=== PATIENT | female | born 1995 | race African-American/Black ===

== ENCOUNTER 2017-05-10 16:18 | Emergency (ER) | payer MEDICAID ==
[~2017-05-10] VITALS: Ht 165.1 cm; Wt 95.3 kg
[~2017-05-10 16:18] MED LIST: AMOXICILLIN500 MG ORAL
[2017-05-10 16:45] VITALS: BP 115/81
[2017-05-10] MEDS ORDERED: IBUPROFEN600 MG ORAL (17:25)
[2017-05-10 17:34] VITALS: BP 115/81
--- NOTE | 2017-05-10 18:15 | Emergency Room Report ---
History of Present Illness General Chief Complaint: Wound Recheck/Suture Removal Source: Patient Present Illness HPI The patient is a 22-year-old male presenting for right toe pain. She states that she kicked a tire approximately one week prior and experienced pain to the big toe. She states that she was initially bleeding and the toenail fell off. Pain has decreased but continued and is a 5/10 dull ache. Worse with touch. She denies any other symptoms including rash, fever, chills, calf pain Allergies: Coded Allergies: No Known Allergies (Unverified , 02/12/15) Patient History Past Medical History: see triage record Pertinent Family History: none Last Menstrual Period: on period Reviewed Nursing Documentation: PMH: Agreed, PSxH: Agreed Nursing Documentation-PMH Past Medical History: No Stated History Review of Systems All Other Systems: negative except mentioned in HPI Physical Exam Vital Signs Date Time Temp Pulse Resp B/P (MAP) Pulse Ox O2 Delivery O2 Flow Rate FiO2 05/10/17 16:37 98.4 88 16 115/81 100 Room Air Sp02 EP Interpretation: reviewed, normal General Appearance: no apparent distress, alert, GCS 15, non-toxic Head: normocephalic, atraumatic Eyes: bilateral eye normal inspection, bilateral eye PERRL Musculoskeletal: back normal, gait/station normal, normal range of motion, other - R 1st toe nail has been removed, tender - R 1st toe distally Neurologic: alert, oriented x3, responsive, motor strength/tone normal, sensory intact, speech normal Psychiatric: judgement/insight normal, memory normal, mood/affect normal, no suicidal/homicidal ideation Skin: normal color, no rash, warm/dry, well hydrated Lymphatic: no adenopathy Medical Decision Making PA Attestation Dr. Johnson is my supervising physician. Patient management was discussed with my supervising physician Diagnostic Impression: Primary Impression: Toenail torn away ER Course The patient is a 22-year-old male presenting for right toe pain Ddx considered include but not limited to sprain/strain, subungual hematoma, fracture, contusion, cellulitis PE: NAD Right foot: First digit has nail removed. No bleeding. No ecchymosis. No edema. Full active range of motion. Sensation is intact. X-ray of the right foot is unremarkable The patient discharged home and told to follow up with her primary doctor. ER precautions are given Other X-Ray Diagnostic Results Other X-Ray Diagnostic Results : X-Ray ordered: R foot # of Views/Limited Vs Complete: 3 View Indication: Pain EP Interpretation: Yes PA Xray: Interpretation reviewed, by supervising MD, and agrees with findings. Interpretation: no dislocation, no soft tissue swelling, no fractures Impression: No acute disease Electronically Signed by: Salazar Cortez PA-C Last Vital Signs Date Time Temp Pulse Resp B/P (MAP) Pulse Ox O2 Delivery O2 Flow Rate FiO2 05/10/17 17:34 98.4 69 16 115/81 100 Room Air Status: improved Disposition: HOME, SELF-CARE Condition: Improved Scripts Ibuprofen* (MOTRIN*) 600 Mg Tablet 600 MG ORAL Q8H Y for For Pain, #30 TAB 0 Refills Prov: SALAZAR CORTEZ 05/10/17 Patient Instructions: Nail Avulsion Additional Instructions: I discussed my findings with the patient. All questions and concerns have been answered. Treatment and medication compliance have been addressed. I advised the patient that they need to follow up with PMD in 3-5 days. Return to ED if symptoms worsen, new symptoms arise, or if needed for any reason. Patient verbalized understanding of discharge instructions. SALAZAR CORTEZ May 10, 2017 18:15
--- NOTE | 2017-05-11 09:55 | Diagnostic Imaging Report ---
Indication: PAIN Technique: 3 views right foot Comparison: none Findings: No acute fractures. No dislocations. 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 Impression: Negative
== END 2017-05-10 17:40 | disposition home or self-care (01) ==
LOC: EMR 17:39
DX: S91.211D Laceration without foreign body of right great toe with damage to nail, subsequent encounter (principal); W22.8XXD Striking against or struck by other objects, subsequent encounter; Q66.22 Congenital metatarsus adductus
CPT/HCPCS: 99283

== ENCOUNTER 2017-08-01 17:40 | Emergency (ER) | payer MEDICAID ==
[~2017-08-01] VITALS: Ht 165.1 cm; Wt 90.7 kg
[~2017-08-01 17:40] MED LIST changes: +IBUPROFEN600 MG ORAL
[2017-08-01] MEDS ORDERED: PENICILLIN V P500 MG PO (18:14)
--- NOTE | 2017-08-01 18:15 | Emergency Room Report ---
History of Present Illness General Chief Complaint: Flu Like Symptoms Source: Patient Present Illness HPI Patient is a 22-year-old female presents today with complaints of sore throat that began 4 days ago. She states the pain is currently for medicine in severity and just wanting medication for the pain. She notes a subjective fever at home, no medication was taken. She denies any cough, runny nose or associated symptoms. She has no significant medical problems and denies tobacco , alcohol or drug use. Allergies: Coded Allergies: No Known Allergies (Unverified , 02/12/15) Patient History Reviewed Nursing Documentation: PMH: Agreed, PSxH: Agreed Review of Systems ENT: Reports: throat pain All Other Systems: negative except mentioned in HPI Physical Exam Vital Signs Date Time Temp Pulse Resp B/P (MAP) Pulse Ox O2 Delivery O2 Flow Rate FiO2 08/01/17 17:47 98.2 88 20 133/79 98 Room Air Sp02 EP Interpretation: reviewed, normal General Appearance: no apparent distress, alert, GCS 15, non-toxic Head: normocephalic, atraumatic Eyes: bilateral eye normal inspection, bilateral eye PERRL ENT: hearing grossly normal, no angioedema, normal voice, uvula midline, tonsillar swelling, tonsillar exudate Neck: full range of motion, supple/symm/no masses Respiratory: chest non-tender, lungs clear, normal breath sounds, speaking full sentences Cardiovascular #1: regular rate, rhythm, no edema Cardiovascular #2: 2+ carotid (R), 2+ carotid (L), 2+ radial (R), 2+ radial (L) , 2+ dorsalis pedis (R), 2+ dorsalis pedis (L) Gastrointestinal: normal bowel sounds, non tender, soft, non-distended, no guarding, no rebound Rectal: deferred Genitourinary: normal inspection, no CVA tenderness Musculoskeletal: back normal, gait/station normal, normal range of motion, non- tender, calf tenderness Neurologic: alert, oriented x3, responsive, motor strength/tone normal, sensory intact, speech normal Psychiatric: judgement/insight normal, memory normal, mood/affect normal, no suicidal/homicidal ideation Reflexes: 3+ bicep (R), 3+ bicep (L), 3+ tricep (R), 3+ tricep (L), 3+ knee (R) , 3+ knee (L) Skin: normal color, no rash, warm/dry, well hydrated Lymphatic: no adenopathy Medical Decision Making PA Attestation supervising physician Dr. Penny Diagnostic Impression: Primary Impression: Acute tonsillitis ER Course Will treat patient empirically with antibiotics based on presentation and history. Findings consistent with acute tonsillitis patient's sisters with penicillin. The instructions are Tylenol and Motrin for fever and pain as needed. Patient understands and agree with plan. Last Vital Signs Date Time Temp Pulse Resp B/P (MAP) Pulse Ox O2 Delivery O2 Flow Rate FiO2 08/01/17 17:47 98.2 88 20 133/79 98 Room Air Status: improved Disposition: HOME, SELF-CARE Condition: Stable Scripts Ibuprofen* (MOTRIN*) 600 Mg Tablet 600 MG ORAL Q6H Y for For Pain, #30 TAB Prov: Patricia Grove P.AAdrienne 08/01/17 Penicillin V Potassium* (PENVK*) 500 Mg Tablet 500 MG PO Q6H for 10 Days, #28 TAB 0 Refills Prov: Patricia Grove.AAdrienne 08/01/17 Patricia Grove.Ross Aug 01, 2017 18:15
[2017-08-01] MEDS ORDERED: IBUPROFEN600 MG ORAL (18:22)
[2017-08-01 18:25] VITALS: BP 133/79
== END 2017-08-01 18:25 | disposition home or self-care (01) ==
LOC: EMR 18:25
DX: J03.90 Acute tonsillitis, unspecified (principal)
CPT/HCPCS: 99283

== ENCOUNTER 2018-01-11 19:00 | Emergency (ER) | payer MEDICAID ==
[~2018-01-11] VITALS: Ht 165.1 cm; Wt 104.3 kg
[~2018-01-11 19:00] MED LIST changes: +PENICILLIN V P500 MG PO
[2018-01-11 20:00] VITALS: BP 113/78
[2018-01-11 21:20] LABS: BASOPHILS % (AUTO) 0.9 % (0.0-2.0); EOSINOPHILS % (AUTO) 1.4 % (0.0-3.0); HEMATOCRIT 32.3 % (37.0-47.0); HEMOGLOBIN 9.8 G/DL (12.0-16.0); LYMPHOCYTES % (AUTO) 29.7 % (20.0-45.0); MEAN CORPUSCULAR VOLUME 74 FL (80-99); MONOCYTES % (AUTO) 5.7 % (1.0-10.0); NEUTROPHILS % (AUTO) 62.3 % (45.0-75.0); PLATELET COUNT 313 K/UL (150-450); RED BLOOD COUNT 4.39 M/UL (4.20-5.40); RED CELL DISTRIBUTION WIDTH 16.2 % (11.6-14.8); WHITE BLOOD COUNT 9.8 K/UL (4.8-10.8)
[2018-01-11 21:40] VITALS: BP 111/80
--- NOTE | 2018-01-11 21:49 | Diagnostic Imaging Report ---
EXAM: US First Trimester, Transabdominal US , Transvaginal CLINICAL HISTORY: PAIN TECHNIQUE: Real-time transabdominal and transvaginal obstetrical ultrasound of the maternal pelvis and a first trimester with image documentation. Transvaginal imaging was used for better evaluation of the fetus and adnexa. COMPARISON: No relevant prior studies available. FINDINGS: Gestation: Single live IUP approximately 7 weeks. heart rate 144 bpm. CRL 9.4 mm. Placenta/amniotic fluid: Cannot be adequately evaluated due to the early gestational age. Uterus/cervix: Uterus 9.2 x 5.5 x 6.3 cm. No myometrial mass. Ovaries: No ovarian torsion. Right ovary 3.6 x 1.7 x 2.6 cm. Left ovary 3.8 x 2 x 3.8 cm. No abnormal adnexal mass. Free fluid: Trace free fluid. IMPRESSION: 1. Single live IUP approximately 7 weeks. 2. No ovarian torsion.
--- NOTE | 2018-01-11 23:42 | Emergency Room Report ---
History of Present Illness General Chief Complaint: Abdominal Pain Source: Patient Present Illness HPI Patient is a 22-year-old female sent in by primary care physician for abdominal pain. Patient gradual onset of symptoms. Patient reports having increased abdominal cramping. She prior history of the positive test. She is reportedly approximately 6 weeks . The patient had not been vomiting. She reports having similar episodes in the past. She denies any fever. She is Allergies: Coded Allergies: No Known Allergies (Unverified , 02/12/15) Patient History Past Medical History: see triage record Last Menstrual Period: 11/27/17 Now: Yes : 1 Para: 0 Reviewed Nursing Documentation: PMH: Agreed; PSxH: Agreed Nursing Documentation-PMH Past Medical History: No Stated History Review of Systems All Other Systems: negative except mentioned in HPI Physical Exam Vital Signs Date Time Temp Pulse Resp B/P (MAP) Pulse Ox O2 Delivery O2 Flow Rate FiO2 01/11/18 19:13 98.5 83 20 113/78 98 Room Air 98.4 General Appearance: well appearing, no apparent distress, alert, GCS 15, non- toxic Head: normocephalic, atraumatic ENT: hearing grossly normal, normal voice Neck: full range of motion, supple Respiratory: no respiratory distress, speaking full sentences Cardiovascular #1: normal inspection Gastrointestinal: normal inspection Musculoskeletal: normal inspection, back normal, no calf tenderness Neurologic: normal inspection, alert, oriented x3, responsive, normal gait Psychiatric: mood/affect normal Skin: no rash Medical Decision Making Diagnostic Impression: Primary Impression: Nonspecific abdominal pain Additional Impression: Intrauterine ER Course Patient is a for abdominal pain. Differential diagnosis included was not limited to incomplete , ectopic , a completed , threatened among others.Because of complexity of patient's case laboratory testing and imaging studies were ordered. The laboratory testing was notable for some anemia as well as elevated quantitative hCG. The patient was advised to follow-up with her [facility]. Pelvic ultrasound showed intrauterine gestational sac approximately 6 weeks Patient is advised follow-up with [facility] in 2 days for repeat quant. Labs Test 01/11/18 21:00 01/11/18 21:17 White Blood Count 9.8 K/UL (4.8-10.8) Red Blood Count 4.39 M/UL (4.20-5.40) Hemoglobin 9.8 G/DL (12.0-16.0) Hematocrit 32.3 % (37.0-47.0) Mean Corpuscular Volume 74 FL (80-99) Mean Corpuscular Hemoglobin 22.2 PG (27.0-31.0) Mean Corpuscular Hemoglobin Concent 30.2 G/DL (32.0-36.0) Red Cell Distribution Width 16.2 % (11.6-14.8) Platelet Count 313 K/UL (150-450) Mean Platelet Volume 6.9 FL (6.5-10.1) Neutrophils (%) (Auto) 62.3 % (45.0-75.0) Lymphocytes (%) (Auto) 29.7 % (20.0-45.0) Monocytes (%) (Auto) 5.7 % (1.0-10.0) Eosinophils (%) (Auto) 1.4 % (0.0-3.0) Basophils (%) (Auto) 0.9 % (0.0-2.0) Human Chorionic Gonadotropin, Quant 17161 mIU/mL (1-6) Urine HCG, Qualitative Positive (NEGATIVE) Last Vital Signs Date Time Temp Pulse Resp B/P (MAP) Pulse Ox O2 Delivery O2 Flow Rate FiO2 01/11/18 19:13 98.5 83 20 113/78 98 Room Air 98.4 Status: improved Disposition: HOME, SELF-CARE Condition: Stable Referrals: [facility],REFERRING (PCP) Patient Instructions: Abdominal Pain, Adult Additional Instructions: Follow up with OB in 2 days for repeat quant BHCG. Ultrasound IUP at 6 weeks Lloyd Goddard MD Jan 11, 2018 23:42
== END 2018-01-11 21:10 | disposition home or self-care (01) ==
LOC: EMR 20:00
DX: O26.891 Other specified pregnancy related conditions, first trimester (principal); Z3A.01 Less than 8 weeks gestation of pregnancy; R10.9 Unspecified abdominal pain
CPT/HCPCS: 76801; 76830; 81025; 84702; 85025; 99284

== ENCOUNTER 2018-02-04 18:45 | Emergency (ER) | payer MEDICAID, OTHER ==
[~2018-02-04] VITALS: Ht 165.1 cm; Wt 90.7 kg
[2018-02-04 20:00] LABS: BASOPHILS % (AUTO) 0.8 % (0.0-2.0); EOSINOPHILS % (AUTO) 1.1 % (0.0-3.0); HEMATOCRIT 33.6 % (37.0-47.0); HEMOGLOBIN 10.1 G/DL (12.0-16.0); LYMPHOCYTES % (AUTO) 27.1 % (20.0-45.0); MEAN CORPUSCULAR VOLUME 75 FL (80-99); MONOCYTES % (AUTO) 5.4 % (1.0-10.0); NEUTROPHILS % (AUTO) 65.6 % (45.0-75.0); PLATELET COUNT 276 K/UL (150-450); RED BLOOD COUNT 4.47 M/UL (4.20-5.40); RED CELL DISTRIBUTION WIDTH 17.2 % (11.6-14.8)
[2018-02-04 20:02] LABS: ANION GAP 9 mmol/L (5-15); BLOOD UREA NITROGEN 6 mg/dL (7-18); CALCIUM 9.1 MG/DL (8.5-10.1); CARBON DIOXIDE 24 MMOL/L (21-32); CHLORIDE 103 MMOL/L (98-107); CREATININE 0.7 MG/DL (0.55-1.30); SODIUM 136 MMOL/L (136-145)
[2018-02-04 20:07] LABS: ALANINE AMINOTRANSFERASE 17 U/L (12-78); ALBUMIN 3.1 G/DL (3.4-5.0); ALBUMIN/GLOBULIN RATIO 0.8 (1.0-2.7); ALKALINE PHOSPHATASE 69 U/L (46-116); ASPARTATE AMINO TRANSFERASE 12 U/L (15-37); BILIRUBIN,TOTAL 0.1 MG/DL (0.2-1.0)
[2018-02-04 20:27] LABS: APPEARANCE,URINE CLEAR; BILIRUBIN, URINE NEGATIVE (NEGATIVE); COLOR,URINE PALE YELLOW; GLUCOSE, URINE (UA) NEGATIVE (NEGATIVE); KETONES,URINE NEGATIVE (NEGATIVE); LEUKOCYTE ESTERASE ,URINE 1+ (NEGATIVE); NITRITE,URINE NEGATIVE (NEGATIVE); PH,URINE 6 (4.5-8.0); PROTEIN,URINE NEGATIVE (NEGATIVE); UROBILINOGEN,URINE NORMAL MG/DL (0.0-1.0)
[2018-02-04] MEDS ORDERED: RANITIDINE HCL150 MG ORAL (21:01)
[2018-02-04] MEDS ORDERED: DICYCLOMINE HCL10 MG PO (21:01)
[2018-02-04] MEDS ORDERED: ONDANSETRON ODT4 MG BC (21:01)
[2018-02-04 21:10] VITALS: BP 109/77
[2018-02-04 21:11] VITALS: BP 101/71
--- NOTE | 2018-02-04 21:15 | Emergency Room Report ---
History of Present Illness General Chief Complaint: Complications Source: Patient Present Illness HPI 22-year-old female presents ED complaining of cramping abdominal pain and diarrhea 1 day. Patient states she is approximately 10 weeks . Has not seen [facility] yet. Pain as cramping, 6 out of 10, nonradiating. Notes nausea , denies vomiting. Denies any vaginal bleeding or discharge. No other aggravating relieving factors. Denies any other associated symptoms Allergies: Coded Allergies: No Known Allergies (Unverified , 02/12/15) Patient History Past Medical History: none Past Surgical History: none Pertinent Family History: none Social History: Denies: smoking, alcohol use, drug use Last Menstrual Period: may Now: Yes - 10 weeks : 1 Immunizations: UTD Reviewed Nursing Documentation: PMH: Agreed; PSxH: Agreed Nursing Documentation-PMH Past Medical History: No Stated History Review of Systems All Other Systems: negative except mentioned in HPI Physical Exam Vital Signs Date Time Temp Pulse Resp B/P (MAP) Pulse Ox O2 Delivery O2 Flow Rate FiO2 02/04/18 18:58 98.3 95 18 101/71 98 Room Air 98.2 Sp02 EP Interpretation: reviewed, normal General Appearance: no apparent distress, alert, GCS 15, non-toxic Head: normocephalic, atraumatic Eyes: bilateral eye normal inspection, bilateral eye PERRL ENT: hearing grossly normal, normal pharynx, no angioedema, normal voice Neck: full range of motion, supple/symm/no masses Respiratory: chest non-tender, lungs clear, normal breath sounds, speaking full sentences Cardiovascular #1: regular rate, rhythm, no edema Cardiovascular #2: 2+ carotid (R), 2+ carotid (L), 2+ radial (R), 2+ radial (L) , 2+ dorsalis pedis (R), 2+ dorsalis pedis (L) Gastrointestinal: normal bowel sounds, non tender, soft, non-distended, no guarding, no rebound Rectal: deferred Genitourinary: normal inspection, no CVA tenderness Musculoskeletal: back normal, gait/station normal, normal range of motion, non- tender Neurologic: alert, oriented x3, responsive, motor strength/tone normal, sensory intact, speech normal Psychiatric: judgement/insight normal, memory normal, mood/affect normal, no suicidal/homicidal ideation Reflexes: 3+ bicep (R), 3+ bicep (L), 3+ tricep (R), 3+ tricep (L), 3+ knee (R) , 3+ knee (L) Skin: normal color, no rash, warm/dry, well hydrated Lymphatic: no adenopathy Medical Decision Making Diagnostic Impression: Primary Impression: Threatened Additional Impression: Gastroenteritis ER Course Hospital Course 22-year-old female presents to ED complaining of lower abdominal pain with nausea, diarrhea. Differential diagnoses include: gastrits, gastroenterits, ectopic , ovarian torsion/cyst, UTI Clinical course Patient placed on stretcher in ED. After initial history and physical I ordered labs, IV fluids and Zofran and pelvic ultrasound. Labs-no leukocytosis, electrolytes okay, beta hCG greater than 100,000, UA unremarkable Pelvic ultrasound-IUP detected with heart rate Discussed findings with the patient. Patient feels better. I will provide her with [facility] referral and encouraged patient to see [facility] soon. Diagnosis - threatened , gastroenteritis Stable and discharged to home with Rx Zantac, Bentyl, Zofran. Followup with PMD /[facility]. Return to ED if symptoms recur or worsen Labs Test 02/04/18 19:20 02/04/18 19:56 White Blood Count 9.0 K/UL (4.8-10.8) Red Blood Count 4.47 M/UL (4.20-5.40) Hemoglobin 10.1 G/DL (12.0-16.0) Hematocrit 33.6 % (37.0-47.0) Mean Corpuscular Volume 75 FL (80-99) Mean Corpuscular Hemoglobin 22.6 PG (27.0-31.0) Mean Corpuscular Hemoglobin Concent 30.0 G/DL (32.0-36.0) Red Cell Distribution Width 17.2 % (11.6-14.8) Platelet Count 276 K/UL (150-450) Mean Platelet Volume 9.4 FL (6.5-10.1) Neutrophils (%) (Auto) 65.6 % (45.0-75.0) Lymphocytes (%) (Auto) 27.1 % (20.0-45.0) Monocytes (%) (Auto) 5.4 % (1.0-10.0) Eosinophils (%) (Auto) 1.1 % (0.0-3.0) Basophils (%) (Auto) 0.8 % (0.0-2.0) Sodium Level 136 MMOL/L (136-145) Potassium Level 4.0 MMOL/L (3.5-5.1) Chloride Level 103 MMOL/L (98-107) Carbon Dioxide Level 24 MMOL/L (21-32) Anion Gap 9 mmol/L (5-15) Blood Urea Nitrogen 6 mg/dL (7-18) Creatinine 0.7 MG/DL (0.55-1.30) Estimat Glomerular Filtration Rate > 60 mL/min (>60) Glucose Level 106 MG/DL (74-106) Calcium Level 9.1 MG/DL (8.5-10.1) Total Bilirubin 0.1 MG/DL (0.2-1.0) Aspartate Amino Transf (AST/SGOT) 12 U/L (15-37) Alanine Aminotransferase (ALT/SGPT) 17 U/L (12-78) Alkaline Phosphatase 69 U/L (46-116) Total Protein 7.0 G/DL (6.4-8.2) Albumin 3.1 G/DL (3.4-5.0) Globulin 3.9 g/dL Albumin/Globulin Ratio 0.8 (1.0-2.7) Lipase 147 U/L (73-393) Human Chorionic Gonadotropin, Quant 272829 mIU/mL (1-6) Urine Color Pale yellow Urine Appearance Clear Urine pH 6 (4.5-8.0) Urine Specific [place] 1.020 (1.005-1.035) Urine Protein Negative (NEGATIVE) Urine Glucose (UA) Negative (NEGATIVE) Urine Ketones Negative (NEGATIVE) Urine Occult Blood Negative (NEGATIVE) Urine Nitrite Negative (NEGATIVE) Urine Bilirubin Negative (NEGATIVE) Urine Urobilinogen Normal MG/DL (0.0-1.0) Urine Leukocyte Esterase 1+ (NEGATIVE) Urine RBC 0-2 /HPF (0 - 2) Urine WBC 0-2 /HPF (0 - 2) Urine Squamous Epithelial Cells Few /LPF (NONE/OCC) Urine Bacteria Few /HPF (NONE) Urine HCG, Qualitative Positive (NEGATIVE) CT/MRI/US Diagnostic Results CT/MRI/US Diagnostic Results : Imaging Test Ordered: OB US Impression IUP 11 weeks. +FHR. yolk sac and pole. Last Vital Signs Date Time Temp Pulse Resp B/P (MAP) Pulse Ox O2 Delivery O2 Flow Rate FiO2 02/04/18 18:58 98.3 95 18 101/71 98 Room Air 98.2 Status: improved Disposition: HOME, SELF-CARE Condition: Stable Scripts Ondansetron Odt* (ZOFRAN ODT*) 4 Mg Tab.rapdis 4 MG BC EVERY 6 HOURS PRN for Nausea & Vomiting, #30 TAB 0 Refills Prov: Miky Lee MD 02/04/18 Ranitidine Hcl* (ZANTAC*) 150 Mg Tablet 150 MG ORAL TWICE A DAY, #30 TAB Prov: Miky Lee MD 02/04/18 Dicyclomine Hcl* (DICYCLOMINE HCL*) 10 Mg Capsule 10 MG PO QID, #20 CAP Prov: Miky Lee MD 02/04/18 Referrals: NON PHYSICIAN (PCP) RAMY ESQUIVEL Carla M.D. Patient Instructions: Viral Gastroenteritis, Adult, [id number] Miky Lee MD Feb 04, 2018 21:15
--- NOTE | 2018-02-05 09:22 | Diagnostic Imaging Report ---
Indication: Abdominal pain and Technique: Transabdominal pelvic ultrasound performed. Please note that no endovaginal ultrasound was performed. Uncertain if patient refused or US tech just did not perform. Findings: Intrauterine gestational sac identified with a diameter of approximately is 62 mm. A yolk sac is identified. pole is identified with crown-rump length of approximately 41 mm. By prior multiple diameter of approximately 16 mm. Head circumference of approximately 51 mm. No spontaneous motion and cardiac activity noted on cine loops. heart rate of approximately 163 bpm. Ovaries are not identified. Lower uterine segment and cervix not imaged. IMPRESSION: Limited exam with only transabdominal scan. Note that the ovaries and lower uterine segment/cervix not imaged. Within these limitations: Single live intrauterine with approximate gestational age by ultrasound of 11 weeks 4 days. heart rate of 163 beats per minutes. Recommend obstetric follow-up for complete OB ultrasound. This was discussed with Dr. Goddard of the emergency department via telephone conversation approximately 9:10 AM on 02/05/2018
== END 2018-02-04 21:13 | disposition home or self-care (01) ==
LOC: EMR 19:31
DX: O20.0 Threatened abortion (principal); O99.611 Diseases of the digestive system complicating pregnancy, first trimester; K92.89 Other specified diseases of the digestive system; Z3A.10 10 weeks gestation of pregnancy
CPT/HCPCS: 36415; 76801; 76830; 80053; 81003; 81025; 83690; 84702; 85025; 96361; 96374; 99284; J2405

== ENCOUNTER 2018-03-11 19:47 | Emergency (ER) | payer OTHER ==
[~2018-03-11] VITALS: Ht 165.1 cm; Wt 107.0 kg
[~2018-03-11 19:47] MED LIST changes: +DICYCLOMINE HCL10 MG PO; +ONDANSETRON ODT4 MG BC; +RANITIDINE HCL150 MG ORAL
[2018-03-11] MEDS ORDERED: PRENATA CHEWAB1 EACH PO (20:15)
[2018-03-11 20:36] VITALS: BP 108/73
[2018-03-11] MEDS ORDERED: TYLENOL EXTRA500 MG ORAL (20:42)
[2018-03-11] MEDS ORDERED: CEPHALEXIN500 MG ORAL (20:42)
--- NOTE | 2018-03-11 20:44 | Emergency Room Report ---
History of Present Illness General Chief Complaint: Skin Rash/Abscess Source: Patient Present Illness HPI 23-year-old female patient presents ER complaining of toe pain for the past 10 days. Reports redness and pain of left foot middle toe during this time. Reports that she thinks it may be related to pedicure she received over a month ago. Reports that a few days ago she drained it and "yellow pus came out of it ". Reports has been putting topical antibiotic on since that time, states does not know the name of the antibiotic. Reports still red and painful. Denies taking any other medications. Reports that she is currently , first OB/ [employer] appointment next week. Denies fever, chest pain, shortness of breath, abdominal pain, other acute symptoms. denies injury or trauma toe. Reports symptoms began "randomly". Allergies: Coded Allergies: No Known Allergies (Unverified , 03/11/18) Patient History Past Medical History: see triage record Last Menstrual Period: unk Now: Yes - 15 weeks Reviewed Nursing Documentation: PMH: Agreed; PSxH: Agreed Nursing Documentation-PMH Past Medical History: No History, Except For Review of Systems All Other Systems: negative except mentioned in HPI Physical Exam Vital Signs Date Time Temp Pulse Resp B/P (MAP) Pulse Ox O2 Delivery O2 Flow Rate FiO2 03/11/18 20:09 98.3 89 16 108/73 98 Room Air 98.2 Sp02 EP Interpretation: reviewed, normal General Appearance: well appearing, no apparent distress, alert, GCS 15, non- toxic Head: normocephalic, atraumatic Eyes: bilateral eye normal inspection, bilateral eye PERRL ENT: hearing grossly normal, normal pharynx, no angioedema, normal voice, uvula midline, moist mucus membranes Neck: full range of motion Respiratory: lungs clear, normal breath sounds, no rhonchi, no respiratory distress, no accessory muscle use, no wheezing, speaking full sentences Cardiovascular #1: regular rate, rhythm, no edema Cardiovascular #2: 2+ dorsalis pedis (R), 2+ dorsalis pedis (L) Musculoskeletal: back normal, digits/nails normal, gait/station normal, normal range of motion, non-tender Psychiatric: mood/affect normal Skin: other - left foot middle toe: Mild erythema noted over medial toe near nail bed on distal phalanx, no obvious ingrown toenail, dried blood noted, no active drainage, no expressible pus, no red streaking or surrounding erythema or edema, no nailbed avulsion, cuticle contact, no finger pad swelling or erythema Medical Decision Making PA Attestation Dr. Lee is my supervising Physician whom patient management has been discussed with. Diagnostic Impression: Primary Impression: Toe infection ER Course Pt. presents to the ED c/o Toe infection. Ddx considered but are not limited to rash, cellulitis, abscess, felon, paronychia, hangnail, herpetic zuly, ingrown toenail. Vital signs: are WNL, pt. is afebrile Ordered Bacitracin and Lidocaine ED COURSE: denies history of injury or trauma, does not require imaging to rule out fracture, nailbed injury unlikely. physical exam shows mild erythema and tenderness to palpation on medial aspect of left middle toe. Likely localized infection, no obvious ingrown toenail or abscess, no fluctuance or induration, no palpable mass. Attempted to express pus however none was expressed, small amount of blood expressed, dried blood noted on initial physical exam, possible previous paronychia that was drained from patient lancing at home, physical exam now showing localized toe infection. Does not require abscess drainage or procedure in the ER at this time. Will provide antibiotics to patient and instructed her to follow up with medical lab scientist, call to schedule appointment, contact information provided. Toe dressed with sterile gauze in the ER. Advised patient to keep clean and dry. Wear open toe shoes. Advised patient that while she is she is only able to take Tylenol for pain symptoms. Do not take Motrin/Ibuprofen. Follow-up with PCP and [employer] to discuss further treatment and referral. Sterile dressing applied to wound. Patient instructed to keep wound clean and dry and to follow-up with primary care provider in 2 days for wound check. do not use medications he do not know the name of or were not provided with by a healthcare provider, discuss all medication use with [employer] [facility]. DISCHARGE -Rx provided for Keflex -Rx provided for Tylenol At this time pt. is stable for d/c to home. Patient resting comfortably, in no acute distress, nontoxic appearing, laughing and smiling. Will provide printed patient care instructions and any necessary prescriptions. Care plan and follow up instructions have been discussed with the patient prior to discharge. Patient instructed to follow-up with primary care provider in 2 - 3 days for wound recheck. Patient questions asked and answered. Patient reports understanding and agreement to treatment plan. ER precautions given. Patient instructed to return to ER immediately for any new or worsening of symptoms including but not limited to fever, worsening of pain symptoms, worsening of erythema, red streaking. - Please note that this Emergency Department Report was dictated using [email or web address] engineer apprentice technology software, occasionally this can lead to erroneous entry secondary to interpretation by the dictation equipment. Last Vital Signs Date Time Temp Pulse Resp B/P (MAP) Pulse Ox O2 Delivery O2 Flow Rate FiO2 03/11/18 20:36 98.2 78 16 108/73 98 Room Air 98.2 Disposition: HOME, SELF-CARE Condition: Stable Scripts Acetaminophen* (TYLENOL EXTRA STRENGTH*) 500 Mg Tablet 500 MG ORAL Q8H PRN for Prn Headache/Temp > 101, #30 TAB 0 Refills Prov: Darryl Stevenson 03/11/18 Cephalexin* (KEFLEX*) 500 Mg Capsule 500 MG ORAL EVERY 12 HOURS, #14 CAP 0 Refills Prov: Darryl Stevenson 03/11/18 Patient Instructions: Paronychia, [id number] Additional Instructions: Followup with primary care provider in 2-3 days for wound check and followup. Provided with contact information for medical lab scientist, call to schedule appointment. Keep clean and dry. Take medications as directed. Can only take Tylenol for pain relief while . Patient questions asked and answered. ER precautions given, patient instructed to return to ER immediately for any new or worsening of symptoms. Darryl Stevenson Mar 11, 2018 20:44
[2018-03-11 20:55] VITALS: BP 108/73
== END 2018-03-11 20:55 | disposition home or self-care (01) ==
LOC: EMR 20:30
DX: L03.032 Cellulitis of left toe (principal)
CPT/HCPCS: 99283